=== PATIENT | female | born 1995 | race Caucasian/White ===

== ENCOUNTER 2016-12-21 08:00 | Inpatient (IN) | payer BC, MEDICAID ==
[~2016-12-21] VITALS: Ht 162.6 cm; Wt 97.5 kg
[2016-12-21] MEDS ORDERED: TERBUTALINE 1 MG/ML VIAL SUBQ PRN (08:30)
[2016-12-21] MEDS ORDERED: OXYTOCIN 15 UNITS/250 ML NS 250 ML IV SCH ×2 (08:30→19:25)
[2016-12-21] MEDS ORDERED: PROMETHAZINE 25 MG/ML VIAL IV PRN (08:30)
[2016-12-21] MEDS ORDERED: CEFAZOLIN (LD/OB) 100 ML IV PRN (08:30)
[2016-12-21] MEDS ORDERED: LIDOCAINE 1% BUFFERED 1 ML SYR INTRADERM PRN (08:30)
[2016-12-21] MEDS ORDERED: LIDOCAINE 1% 30 ML PF INFILTRATE ONE (08:30)
[2016-12-21] MEDS ORDERED: ONDANSETRON 4 MG VIAL IV PRN (08:30)
[2016-12-21] MEDS ORDERED: FAMOTIDINE 20 MG INJ IV PRN (08:30)
[2016-12-21] MEDS ORDERED: ACETAMINOPHEN 325 MG TAB PO PRN (08:30)
[2016-12-21] MEDS ORDERED: FAMOTIDINE 20 MG TAB PO PRN (08:30)
[2016-12-21] MEDS ORDERED: METOCLOPRAMIDE 10 MG/2 ML VIAL IV PUSH PRN (08:30)
[2016-12-21] MEDS ORDERED: ALU/MAG/SIM 30 ML UDC PO PRN (08:30)
[2016-12-21 08:33] VITALS: Ht 162.6 cm; Wt 97.5 kg
[2016-12-21] MEDS: LACT RINGERS 1,000 ML IV SCH ×3 (09:35→17:32)
[2016-12-21] MEDS ORDERED: MORPHINE 2 MG/ML SYR IV ONE (13:05)
[2016-12-21] MEDS ORDERED: FENTANYL 100 MCG/2 ML AMP ONE (15:03)
[2016-12-21] MEDS ORDERED: ROPIV/FENT 0.2%-2MCG/ML 100 ML EPIDURAL ONE (15:03)
[2016-12-21] MEDS ORDERED: FENTANYL 100 MCG/2 ML AMP EPIDURAL ONE (16:45)
[2016-12-21] MEDS ORDERED: LACT RINGERS 500 ML IV ONE (16:45)
[2016-12-21] MEDS ORDERED: SODIUM CHLORIDE 0.9% 500 ML IV PRN (16:45)
[2016-12-21] MEDS ORDERED: LACT RINGERS 500 ML IV PRN (16:45)
[2016-12-21] MEDS: ROPIV/FENT 0.2%-2MCG/ML 100 ML EPIDURAL SCH (17:18)
[2016-12-21] MEDS ORDERED: **ONLY ANESTEHSIA MAY ORDER OPIATES WHILE ON EPIDURAL XX SCH (20:00)
[2016-12-22] VITALS (12 sets, daily range): BP systolic 109–135; RESP 16–20; TEMP 97.7–99.7
[2016-12-22] MEDS: ROPIV/FENT 0.2%-2MCG/ML 100 ML EPIDURAL SCH (00:13)
[2016-12-22] MEDS: LACT RINGERS 1,000 ML IV SCH (00:38)
[2016-12-22] MEDS ORDERED: Ibuprofen 600 MG TAB ONE (05:07)
[2016-12-22] MEDS: Ibuprofen 600 MG TAB PO SCH ×4 (05:10→23:34)
[2016-12-22] MEDS: OXYTOCIN 15 UNITS/250 ML NS 250 ML IV SCH (05:22)
[2016-12-22] MEDS ORDERED: MAG HYDROX 30 ML UDC PO PRN (05:45)
[2016-12-22] MEDS ORDERED: DERMOPLAST SPRAY TOPICAL PRN (05:45)
[2016-12-22] MEDS ORDERED: MISOPROSTOL 100 MCG TAB PO ONE (05:45)
[2016-12-22] MEDS ORDERED: TDaP 0.5 ML VIAL IM.VACC ONE (05:45)
[2016-12-22] MEDS ORDERED: ASTRINGENT MED PADS 40'S TOPICAL PRN (05:45)
[2016-12-22] MEDS ORDERED: OXYTOCIN 15 UNITS/250 ML NS 250 ML IV SCH (05:45)
[2016-12-22] MEDS ORDERED: SALINE FLUSH 10 ML FLUSH PRN (05:45)
[2016-12-22] MEDS: DOCUSATE SOD 100 MG CAP PO SCH (08:41)
[2016-12-22] MEDS ORDERED: MISOPROSTOL 100 MCG TAB ONE (16:01)
[2016-12-23 01:26] VITALS: BP_SYST 123; RESP 16; TEMP 98
[2016-12-23 05:32] VITALS: BP_SYST 125; RESP 16; TEMP 98
[2016-12-23] MEDS: Ibuprofen 600 MG TAB PO SCH ×3 (05:54→17:41)
[2016-12-23] MEDS: DOCUSATE SOD 100 MG CAP PO SCH (09:15)
[2016-12-23 10:58] VITALS: BP_SYST 114; TEMP 97.9
[2016-12-23 13:47] VITALS: BP_SYST 105; RESP 16; TEMP 97.5
[2016-12-23 18:38] VITALS: BP_SYST 114; RESP 14; TEMP 98
[2016-12-24] MEDS: Ibuprofen 600 MG TAB PO SCH ×2 (03:04→06:52)
[2016-12-24 05:35] VITALS: BP_SYST 132; RESP 20; TEMP 98.5
[2016-12-24] MEDS: DOCUSATE SOD 100 MG CAP PO SCH (08:35)
[2016-12-24 10:15] VITALS: BP_SYST 129; RESP 16; TEMP 98.1
[2016-12-24 10:19] VITALS: BP_SYST 129; RESP 16; TEMP 98.1
== END 2016-12-24 11:38 | disposition home or self-care (01) | DRG 775 ==
LOC: LD 08:23 → OB 12-22 12:53
PROVIDERS: ADMIT Obstetrics & Gynecology; ATTEND Obstetrics & Gynecology
PROC: 10E0XZZ Delivery of Products of Conception, External Approach (ICD-10-PCS; principal; 2016-12-22)
PROC: 3E033VJ Introduction of Other Hormone into Peripheral Vein, Percutaneous Approach (ICD-10-PCS; 2016-12-22)
PROC: 0HQ9XZZ Repair Perineum Skin, External Approach (ICD-10-PCS; 2016-12-22)
DX: O48.0 Post-term pregnancy (principal); O70.0 First degree perineal laceration during delivery; Z3A.40 40 weeks gestation of pregnancy; Z37.0 Single live birth
CPT/HCPCS: 59025; 80307; 85014; 85018; 85025; 86850; 86900; 86901